=== PATIENT | male | born 1970 | race Caucasian/White ===

== ENCOUNTER → 2021-06-11 | Day surgery (SDC) | payer OTHER ==
[~2021-06-11] MED LIST: ELIQUIS5 MG PO; ENTRESTO 24 MG1 EACH PO; METHIMAZOLE5 MG PO; TOPROL XL50 MG PO
== END | disposition home or self-care (01) ==
LOC: OR 06:50
DX: R19.5 Other fecal abnormalities (principal); K62.1 Rectal polyp; K64.0 First degree hemorrhoids; K64.1 Second degree hemorrhoids; I10 Essential (primary) hypertension; I48.20 Chronic atrial fibrillation, unspecified; E03.9 Hypothyroidism, unspecified; Z72.0 Tobacco use; Z79.01 Long term (current) use of anticoagulants; Z20.822 Contact with and (suspected) exposure to COVID-19
CPT/HCPCS: J2704; J7040